=== PATIENT | male | born 1970 | race Caucasian/White ===

== ENCOUNTER 2017-01-27 17:10 | Emergency (ER) | payer OTHER ==
[2017-01-27 17:12] VITALS: BP 170/94; PULSE 68; RESP 14; TEMP 98.4; O2SAT 95
[2017-01-27] MEDS ORDERED: SODIUM CHLORIDE 0.9% FLUSH 10 ML FLUSH IVF PRN (18:00)
--- NOTE | 2017-01-27 18:01 | PD ---
HPI Chief Complaint: Chest Pain Time Seen by Provider: 17:36 Travel History International Travel<30 days: No Contact w/Intl Traveler<30days: No Traveled to known affect area: No History of Present Illness HPI 46-year-old male presents to the emergency department for evaluation of chest pain that started on Wednesday and has been intermittent since. He currently states it is 2/10, aching, nonradiating. Patient denies any diaphoresis, nausea , vomiting. Patient states that he does travel a lot and his car for long distances. He just recently drove back from [place]. Patient denies any fevers or chills. No cough or congestion. He denies any hemoptysis. No leg edema. No history DVT or PE. He does report history of hypertension and hyperlipidemia , but is not currently on any prescribed medications. He is not a current tobacco user, states he quit over 10 years ago. He denies any illicit drug use. He does report occasional alcohol use. He denies any history of cardiac issues. He has never had a stress test or cardiac catheterization. Moderate severity. Patient denies any exacerbating or alleviating factors. No associated symptoms. Patient took 2 full ASA today. PFSH Past Medical History Cancer: No Cardiovascular Problems: No Diabetes: No Endocrine: No GERD: Yes Glaucoma: No Genitourinary: No Hepatitis: No Hiatal Hernia: No Hypertension: No Immune Disorder: No Musculoskeletal: No Neurologic: No Psychiatric: No Reproductive: No Respiratory: No Thyroid Disease: No Past Surgical History Body Medical Devices: NONE Genitourinary Surgery: Yes (VASECTOMY) Pacemaker: No Social History Alcohol Use: Yes (occ) Tobacco Use: No (1/2PPD) Substance Use: No Allergies-Medications (Allergen,Severity, Reaction): Coded Allergies: No Known Allergies (Verified , 09/28/14) Reported Meds & Prescriptions Reported Meds & Active Scripts Active No Active Prescriptions or Reported Medications Review of Systems Except as stated in HPI: all other systems reviewed are Neg Physical Exam Narrative GENERAL: Well-nourished, well-developed male patient, afebrile. SKIN: Focused skin assessment warm/dry. HEAD: Normocephalic. Atraumatic EYES: No scleral icterus. No injection or drainage. NECK: Supple, trachea midline. No JVD or lymphadenopathy. CARDIOVASCULAR: Regular rate and rhythm without murmurs, gallops, or rubs. Bilateral radial and pedal pulses are 2+. RESPIRATORY: Breath sounds equal bilaterally. No accessory muscle use. Lungs sounds are clear to auscultation. GASTROINTESTINAL: Abdomen soft, non-tender, nondistended. No reproducible chest pain noted. MUSCULOSKELETAL: No cyanosis, or edema. BACK: Nontender without obvious deformity. No CVA tenderness. Data Data Last Documented VS Vital Signs Date Time Temp Pulse Resp B/P (MAP) Pulse Ox O2 Delivery O2 Flow Rate FiO2 01/27/17 18:46 97 Room Air 01/27/17 18:43 89 18 139/87 (104) 01/27/17 17:12 98.4 Orders Orders Electrocardiogram (01/27/17 17:47) Basic Metabolic Panel (Bmp) (01/27/17 17:47) Ckmb (Isoenzyme) Profile (01/27/17 17:47) Complete Blood Count With Diff (01/27/17 17:47) D-Dimer (01/27/17 17:47) Magnesium (Mg) (01/27/17 17:47) Prothrombin Time / Inr (Pt) (01/27/17 17:47) Act Partial Throm Time (Ptt) (01/27/17 17:47) Troponin I (01/27/17 17:47) Ecg Monitoring (01/27/17 17:47) Bilateral Bp Monitoring (01/27/17 17:47) Iv Access Insert/Monitor (01/27/17 17:47) Oximetry (01/27/17 17:47) Oxygen Administration (01/27/17 17:47) Sodium Chloride 0.9% Flush (Ns Flush) (01/27/17 18:00) Chest, Single Ap (01/27/17 ) Troponin I (01/27/17 21:36) Electrocardiogram (01/27/17 21:36) Labs Laboratory Tests Test 01/27/17 18:36 01/27/17 21:15 White Blood Count 6.3 TH/MM3 Red Blood Count 5.07 MIL/MM3 Hemoglobin 16.4 GM/DL Hematocrit 45.9 % Mean Corpuscular Volume 90.5 FL Mean Corpuscular Hemoglobin 32.3 PG Mean Corpuscular Hemoglobin Concent 35.7 % Red Cell Distribution Width 12.4 % Platelet Count 259 TH/MM3 Mean Platelet Volume 7.8 FL Neutrophils (%) (Auto) 54.0 % Lymphocytes (%) (Auto) 35.0 % Monocytes (%) (Auto) 8.7 % Eosinophils (%) (Auto) 1.1 % Basophils (%) (Auto) 1.2 % Neutrophils # (Auto) 3.4 TH/MM3 Lymphocytes # (Auto) 2.2 TH/MM3 Monocytes # (Auto) 0.5 TH/MM3 Eosinophils # (Auto) 0.1 TH/MM3 Basophils # (Auto) 0.1 TH/MM3 CBC Comment AUTO DIFF Differential Comment AUTO DIFF CONFIRMED Platelet Estimate NORMAL Platelet Morphology Comment NORMAL Red Cell Morphology Comment NORMAL Prothrombin Time 10.8 SEC Prothromb Time International Ratio 1.1 RATIO Activated Partial Thromboplast Time 26.1 SEC D-Dimer Quantitative (PE/DVT) LESS THAN 0.19 MG/L FEU Blood Urea Nitrogen 15 MG/DL Creatinine 1.27 MG/DL Random Glucose 87 MG/DL Calcium Level 9.0 MG/DL Magnesium Level 2.3 MG/DL Sodium Level 140 MEQ/L Potassium Level 3.9 MEQ/L Chloride Level 105 MEQ/L Carbon Dioxide Level 27.0 MEQ/L Anion Gap 8 MEQ/L Estimat Glomerular Filtration Rate 62 ML/MIN Total Creatine Kinase 57 U/L Troponin I LESS THAN 0.02 NG/ML LESS THAN 0.02 NG/ML MDM Medical Decision Making Medical Screen Exam Complete: Yes Emergency Medical Condition: Yes Medical Record Reviewed: Yes Interpretation(s) chest x-ray - CONCLUSION: No acute disease. Differential Diagnosis ACS versus chest wall pain versus anxiety versus electrolyte abnormality versus PE versus pneumonia versus pneumothorax Narrative Course 46-year-old male presents to the emergency department for evaluation of chest pain has been intermittent since Wednesday without history of chest pain. EKG, CBC , BMP, CK, troponin, magnesium, PTT, PT/INR, d-dimer, chest x-ray are ordered and pending. EKG shows SR, HR 73, no acute ST changes. This is similar to previous EKG. CBC shows no acute abnormality. BMP shows no acute abnormality. CK is 57. Troponin is less than 0.02. Magnesium is 2.3. Coags are unremarkable. D- dimer is less than 0.19. Chest x-ray shows no acute disease. Patient was offered chest pain center. Patient refused. Patient wants to follow-up with dining room busser for outpatient stress test. Patient promised that he will call 911 immediately if chest pain persists or got progressively worse. He is aware that cardiac disease cannot be ruled out without stress test, and he verbalizes understanding. He is aware that he could have complication from not being admitted up to including and disability. Patient's heart score low risk. Delta troponin EKG will be completed at 3 hour stacy. He does state that movement and crossing his arms causes the pain to be more "achy". Repeat EKG is unchanged. Repeat troponin is less than 0.02. Patient is instructed to follow-up for outpatient stress test. He is instructed to return here immediately for any worsening symptoms. He verbalizes agreement and understanding. Diagnosis Primary Impression: Chest pain Qualified Codes: R07.9 - Chest pain, unspecified Referrals: [facility] Care Physician Patient Instructions: Chest Pain (ED), General Instructions Additional Instructions: Call 911 immediately if chest pain persists or got progressively worse Follow up outpatient for stress test. Return to the emergency department for any acute, worsening of symptoms. Med/Other Pt SpecificInfo: No Change to Meds Scripts No Active Prescriptions or Reported Meds Disposition: 01 DISCHARGE HOME Condition: Stable Shelia Thomason KEN Jan 27, 2017 18:01
[2017-01-27 18:43] VITALS: BP 139/87; PULSE 89; RESP 18; O2SAT 94
--- NOTE | 2017-01-27 18:44 | RADRPT ---
EXAM DATE/TIME: 01/27/2017 18:33 [facility] COMPARISON: No previous studies available for comparison. INDICATIONS : Chest pain. MEDICAL HISTORY : None. SURGICAL HISTORY : None. ENCOUNTER: Initial ACUITY: 2 days PAIN SCORE: 10/10 LOCATION: Left middle,chest. FINDINGS: A single view of the chest demonstrates the lungs to be symmetrically aerated without evidence of mas s, infiltrate or effusion. The cardiomediastinal contours are unremarkable. Osseous structures are intact. CONCLUSION: No acute disease. Godwin Evangelista MD on January 27, 2017 at 18:42 Board Certified Radiologist. This report was verified electronically.
[2017-01-27 19:11] LABS: AUTOMATED NEUTROPHIL # 3.4 TH/MM3 (1.8-7.7); BASOPHIL # 0.1 TH/MM3 (0-0.2); BASOPHIL % 1.2 % (0.0-2.0); EOSINOPHIL # 0.1 TH/MM3 (0-0.4); EOSINOPHIL % 1.1 % (0.0-4.0); HEMATOCRIT 45.9 % (39.0-51.0); LYMPHOCYTE # 2.2 TH/MM3 (1.0-4.8); MEAN CELL VOLUME 90.5 FL (80.0-100.0); MEAN CORPUSCULAR HEMOGLOBIN 32.3 PG (27.0-34.0); MEAN CORPUSCULAR HGB CONC 35.7 % (32.0-36.0); MONO % 8.7 % (0.0-8.0); PLATELET COUNT 259 TH/MM3 (150-450); RED BLOOD COUNT 5.07 MIL/MM3 (4.50-5.90); RED CELL DISTRIBUTION WIDTH 12.4 % (11.6-17.2); WHITE BLOOD COUNT 6.3 TH/MM3 (4.0-11.0)
[2017-01-27 19:12] LABS: HEMO FLAGS AUTO DIFF
[2017-01-27 19:22] LABS: ANION GAP 8 MEQ/L (5-15); BLOOD UREA NITROGEN 15 MG/DL (7-18); CHLORIDE 105 MEQ/L (98-107); GLOMERULAR FILTRATION RATE 62 ML/MIN (>89); MAGNESIUM 2.3 MG/DL (1.5-2.5); POTASSIUM 3.9 MEQ/L (3.5-5.1); SODIUM (NA) 140 MEQ/L (136-145)
[2017-01-27 19:31] LABS: APTT (PATIENT) 26.1 SEC (24.3-30.1); INTERNATIONAL NORMALIZED RATIO 1.1 RATIO; PROTHROMBIN TIME - PATIENT 10.8 SEC (9.8-11.6)
[2017-01-27 19:35] LABS: CREATINE KINASE 57 U/L (39-308)
[2017-01-27 19:45] LABS: PLATELET ESTIMATE SMEAR NORMAL (NORMAL); PLATELET MORPHOLOGY NORMAL (NORMAL); SCAN/DIFF AUTO DIFF CONFIRMED
--- NOTE | 2017-01-28 14:03 | EKG ---
Date Performed: 01/27/2017 Time Performed: 17:38:54 PTAGE: 46 years EKG: Sinus rhythm BORDERLINE LEFT AXIS DEVIATION INCOMPLETE RIGHT BUNDLE BRANCH BLOCK MINIMAL VOLTAGE CRITERIA FOR LVH , CONSIDER NORMAL VARIANT BORDERLINE ECG Compared to prior tracing no significant change PREVIOUS TRACING 07/17/2009 21.47 DOCTOR: Elizabeth Montana Interpretating Date/Time 01/28/2017 14:02:29
--- NOTE | 2017-01-28 14:03 | EKG ---
Date Performed: 01/27/2017 Time Performed: 21:18:27 PTAGE: 46 years EKG: SINUS BRADYCARDIA POSSIBLE RIGHT VENTRICULAR CONDUCTION DELAY MODERATE VOLTAGE CRITERIA FOR LVH, CONSIDER NORMAL VARIANT BORDERLINE ECG Compared to prior tracing no significant change PREVIOUS TRACING : 01/27/2017 17.38 DOCTOR: Elizabeth Montana Interpretating Date/Time 01/28/2017 14:02:47
== END 2017-01-27 22:39 | disposition home or self-care (01) ==
LOC: NEPE 17:10
DX: R07.9 Chest pain, unspecified (principal); R00.1 Bradycardia, unspecified; I45.10 Unspecified right bundle-branch block; K21.9 Gastro-esophageal reflux disease without esophagitis; F17.200 Nicotine dependence, unspecified, uncomplicated
CPT/HCPCS: 71010; 80048; 82550; 83735; 84484; 85025; 85379; 85610; 85730; 93005; 99285